=== PATIENT | female | born 1950 | race Caucasian/White ===

== ENCOUNTER 2019-02-14 18:14 | Inpatient (IN) | payer MEDICARE ==
[~2019-02-14 18:14] MED LIST: ISOVUE-370 76%-LOCM 1 ML ONE
[2019-02-14] MEDS ORDERED: Fentanyl 100 MCG/2 ML VIAL ONE (18:27)
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
[2019-02-14] MEDS ORDERED: Adacel (T-DAP) 0.5 ML SYRINGE ONE (18:43)
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
[2019-02-14 18:45] LABS: #Eosinphils 0.2 thou/uL (0.0-0.7); #Lymphocytes 1.9 thou/uL (1.20-3.40); #Neutrophils 13.5 thou/uL (1.40-6.50); %Basophils 0.2 % (0.0-1.0); %Eosinophils 1.3 % (0.0-10.0); %Lymphocytes 11.5 % (21.0-51.0); %Monocytes 5.7 % (0.0-10.0); %Neutrophils 81.3 % (42.0-75.0); Mean Corpuscular HGB CONC 33.4 g/dL (32.0-36.0); Mean Corpuscular Hemoglobin 28.9 pg (27.0-31.0); Mean Corpuscular Volume 86.4 fL (78.0-98.0); Mean Platelet Volume 6.7 fL (7.4-10.4); Platelet Count 291 thou/uL (130-400); RBC Distribution Width 12.9 % (11.5-14.5); Red Blood Cell (RBC) Count 3.46 mill/uL (4.20-5.40); White Blood Cell (WBC) Count 16.6 thou/uL (4.8-10.8)
[2019-02-14 18:50] LABS: INR-International Normal Ratio 1.1; PTT 27.6 SEC (22.9-36.1)
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
[2019-02-14 19:14] LABS: ALT (SGPT) 32 U/L (8-55); AST (SGOT) 45 U/L (5-34); Albumin 4.2 g/dL (3.4-4.8); Alkaline Phosphatase 56 U/L (40-150); Anion Gap 17 mmol/L (10-20); BUN (Urea Nitrogen) 24 mg/dL (9.8-20.1); Bilirubin, Total 0.5 mg/dL (0.2-1.2); Calc. Creatinine Clearance 0 mL/min (70-130); Calcium 9.4 mg/dL (7.8-10.44); Carbon Dioxide 19 mmol/L (23-31); Chloride 107 mmol/L (98-107); Estimated GFR-MDRD 40; Globulin 2.2 g/dL (2.4-3.5); Glucose 206 mg/dL (80-115); Potassium 4.1 mmol/L (3.5-5.1); Protein, Total 6.4 g/dL (6.0-8.3); Sodium 139 mmol/L (136-145)
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
[2019-02-14] MEDS ORDERED: Morphine 4 MG/ML VIAL ONE (20:47)
[2019-02-14 21:13] LABS: Lactic Acid 2.5 mmol/L (0.5-2.2)
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
[2019-02-14 22:24] LABS: Bilirubin Negative (Negative); Blood, Urine Negative (Negative); Clarity CLEAR (Clear); Glucose, Urine (Dipstick) 500 mg/dL (Negative); Leukocyte Small (Negative); Nitrite Negative (Negative); Protein, Urine (Dipstick) Negative (Neg-Trace); Urobilinogen 0.2 mg/dL (0.2-1.0)
[2019-02-14 22:26] LABS: Bacteria/HPF None Seen HPF (None Seen); Hyaline Casts/LPF 0-3 HYALINE CAST LPF (0-3 Hyaline); Pathc Cast-AUWi Flag 0.54 (0-2.49); RBC/HPF 0-3 HPF (0-3); Squamous Epithelial 0-3 HPF (0-3)
[2019-02-14 22:27] LABS: Specific Gravity, Urine 1.048 (1.002-1.036)
[2019-02-14] MEDS ORDERED: traMADol HCl 50 MG TAB PO PRN (22:33)
[2019-02-14] MEDS ORDERED: Morphine 4 MG/ML VIAL SLOW IVP PRN (22:33)
[2019-02-14] MEDS ORDERED: Dextrose 5% in Water 1,000 ML IV PRN (22:33)
[2019-02-14] MEDS ORDERED: hydrALAZINE 20 MG/ML VIAL SLOW IVP PRN (22:33)
[2019-02-14] MEDS ORDERED: Dextrose 50% Abboject 50 ML SYRINGE SLOW IVP PRN (22:33)
[2019-02-14] MEDS ORDERED: Ondansetron PF 4 MG/2 ML Vial IVP PRN (22:33)
[2019-02-14] MEDS ORDERED: Promethazine HCl 25 MG/ML VIAL IM PRN (22:33)
[2019-02-14] MEDS ORDERED: Famotidine 20 MG TAB PO SCH (23:00)
[2019-02-14] MEDS ORDERED: Bacitracin Zinc 1 Packet TOP SCH (23:00)
[2019-02-14] MEDS ORDERED: Senokot S 8.6-50 MG TAB PO SCH (23:00)
[2019-02-14] MEDS: Sodium Chloride 0.9% 1,000 ML IV SCH (23:30)
[2019-02-14] MEDS: Acetaminophen 1,000 MG in Premix Bag 1 BAG IVPB SCH (23:39)
[2019-02-14] MEDS: traMADol HCl 50 MG TAB PO SCH (23:40)
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
[2019-02-15 03:53] VITALS: BMI 27.1
[2019-02-15] MEDS: CEFAZOLIN 2 GM in Premix Bag 1 BAG IVPB SCH ×3 (04:55→21:33)
[2019-02-15] MEDS: traMADol HCl 50 MG TAB PO SCH ×4 (05:36→23:38)
[2019-02-15] MEDS: Acetaminophen 1,000 MG in Premix Bag 1 BAG IVPB SCH ×4 (05:36→23:36)
[2019-02-15 06:29] LABS: #Lymphocytes 1.6 thou/uL (1.20-3.40); #Monocytes 0.8 thou/uL (0.11-0.59); #Neutrophils 7.6 thou/uL (1.40-6.50); %Basophils 0.1 % (0.0-1.0); %Eosinophils 0.3 % (0.0-10.0); %Lymphocytes 15.7 % (21.0-51.0); %Monocytes 7.8 % (0.0-10.0); %Neutrophils 76.2 % (42.0-75.0); Hemoglobin 9.1 g/dL (12.0-16.0); Mean Corpuscular HGB CONC 33.7 g/dL (32.0-36.0); Mean Platelet Volume 6.9 fL (7.4-10.4); Platelet Count 285 thou/uL (130-400); RBC Distribution Width 12.8 % (11.5-14.5); Red Blood Cell (RBC) Count 3.14 mill/uL (4.20-5.40)
[2019-02-15 06:50] LABS: Anion Gap 13 mmol/L (10-20); BUN (Urea Nitrogen) 19 mg/dL (9.8-20.1); Calc. Creatinine Clearance 55 mL/min (70-130); Calcium 9.1 mg/dL (7.8-10.44); Carbon Dioxide 22 mmol/L (23-31); Chloride 103 mmol/L (98-107); Estimated GFR-MDRD 49; Glucose 169 mg/dL (80-115); Magnesium 1.4 mg/dL (1.6-2.6); Phosphorus 4.1 mg/dL (2.3-4.7); Potassium 4.1 mmol/L (3.5-5.1); Sodium 134 mmol/L (136-145)
[2019-02-15] MEDS: Senokot S 8.6-50 MG TAB PO SCH ×2 (08:14→21:32)
[2019-02-15] MEDS: Bacitracin Zinc 1 Packet TOP SCH ×3 (08:14→21:32)
[2019-02-15] MEDS: Famotidine 20 MG TAB PO SCH ×2 (08:14→21:32)
[2019-02-15] MEDS: Polyethylene Glycol 3350 17 GM Packet PO SCH (08:14)
[2019-02-15] MEDS ORDERED: Magnesium Sulfate 4 GM in Sodium Chloride 0.9% 250 ML 250 ML IVPB SCH (08:30)
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
[2019-02-15] MEDS ORDERED: Fentanyl 100 MCG/2 ML VIAL ONE (13:15)
[2019-02-15] MEDS ORDERED: Neomycin-Polymyxin 1 ML AMP ONE (13:39)
--- NOTE | 2019-02-15 16:31 | RAD ---
6 intraoperative radiograph right femur. Intraoperative radiographs obtained. HISTORY: Right femoral fracture. Images demonstrate open reduction internal fixation of the comminuted distal right femoral fracture. IMPRESSION: Open reduction internal fixation right femoral fracture.
[2019-02-15] MEDS ORDERED: PHENYLEPHRINE-NS 100 MCG/ML 10 ML SYRINGE ONE (16:41)
[2019-02-15] MEDS ORDERED: PROPOFOL 200 MG/20 ML VIAL ONE (16:41)
[2019-02-15] MEDS ORDERED: Rocuronium Bromide 10 MG/ML (10ML VIAL) ONE (16:41)
[2019-02-15] MEDS ORDERED: Glycopyrrolate 0.2 MG/ML 5 ML SYRINGE ONE (16:41)
[2019-02-15] MEDS ORDERED: Lidocaine 1% PF 5 ML VIAL ONE (16:41)
[2019-02-15] MEDS ORDERED: Ketorolac Tromethamine 30 MG/ML VIAL ONE (16:41)
[2019-02-15] MEDS ORDERED: ePHEDrine 50 MG/ML VIAL ONE (16:41)
[2019-02-15] MEDS: Sodium Chloride 0.9% 1,000 ML IV SCH ×2 (17:01)
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
[2019-02-15] MEDS: Verapamil 120 MG TAB PO SCH (21:30)
[2019-02-15] MEDS: Atorvastatin Calcium 20 MG TAB PO SCH (21:32)
[2019-02-15] MEDS: HumaLOG 300 UNITS/3 ML VIAL SC PRN (21:33)
[2019-02-16] MEDS: CEFAZOLIN 2 GM in Premix Bag 1 BAG IVPB SCH ×3 (03:28→20:42)
[2019-02-16 05:34] LABS: #Lymphocytes 0.9 thou/uL (1.20-3.40); #Monocytes 0.6 thou/uL (0.11-0.59); #Neutrophils 6.7 thou/uL (1.40-6.50); %Basophils 0.4 % (0.0-1.0); %Lymphocytes 11.3 % (21.0-51.0); %Monocytes 7.4 % (0.0-10.0); %Neutrophils 80.9 % (42.0-75.0); Hemoglobin 7.6 g/dL (12.0-16.0); Mean Corpuscular HGB CONC 33.1 g/dL (32.0-36.0); Mean Corpuscular Hemoglobin 28.9 pg (27.0-31.0); Mean Corpuscular Volume 87.1 fL (78.0-98.0); Mean Platelet Volume 6.7 fL (7.4-10.4); Platelet Count 239 thou/uL (130-400); RBC Distribution Width 12.9 % (11.5-14.5); Red Blood Cell (RBC) Count 2.62 mill/uL (4.20-5.40); White Blood Cell (WBC) Count 8.2 thou/uL (4.8-10.8)
[2019-02-16 05:57] LABS: Anion Gap 12 mmol/L (10-20); BUN (Urea Nitrogen) 19 mg/dL (9.8-20.1); Calc. Creatinine Clearance 56 mL/min (70-130); Calcium 8.5 mg/dL (7.8-10.44); Carbon Dioxide 23 mmol/L (23-31); Chloride 103 mmol/L (98-107); Estimated GFR-MDRD 49; Glucose 198 mg/dL (80-115); Magnesium 1.9 mg/dL (1.6-2.6); Phosphorus 4.2 mg/dL (2.3-4.7); Potassium 4.9 mmol/L (3.5-5.1); Sodium 133 mmol/L (136-145)
[2019-02-16] MEDS: traMADol HCl 50 MG TAB PO SCH ×4 (06:20→23:37)
[2019-02-16] MEDS: HumaLOG 300 UNITS/3 ML VIAL SC PRN ×3 (06:23→20:55)
[2019-02-16] MEDS: Hydrochlorothiazide 25 MG TAB PO SCH (08:51)
[2019-02-16] MEDS: Polyethylene Glycol 3350 17 GM Packet PO SCH (08:52)
[2019-02-16] MEDS: Bacitracin Zinc 1 Packet TOP SCH ×3 (08:52→20:45)
[2019-02-16] MEDS: Famotidine 20 MG TAB PO SCH ×2 (08:52→20:45)
[2019-02-16] MEDS: Senokot S 8.6-50 MG TAB PO SCH ×2 (08:52→20:45)
[2019-02-16] MEDS: Verapamil 120 MG TAB PO SCH ×2 (08:52→20:42)
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
[2019-02-16] MEDS: Acetaminophen 500 MG TAB PO SCH ×3 (11:59→23:37)
[2019-02-16] MEDS: Ascorbic Acid 500 mg Chewable Tablet PO SCH ×2 (11:59→20:45)
[2019-02-16] MEDS: Cyclobenzaprine 10 MG TAB PO PRN ×3 (12:01→23:40)
[2019-02-16] MEDS: Ferrous Sulfate 325 MG TAB PO SCH (17:23)
[2019-02-16] MEDS: Atorvastatin Calcium 20 MG TAB PO SCH (20:45)
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
[2019-02-17] MEDS: CEFAZOLIN 2 GM in Premix Bag 1 BAG IVPB SCH (03:51)
[2019-02-17] MEDS: Acetaminophen 500 MG TAB PO SCH ×4 (06:14→23:38)
[2019-02-17] MEDS: traMADol HCl 50 MG TAB PO SCH ×4 (06:14→23:39)
[2019-02-17] MEDS: HumaLOG 300 UNITS/3 ML VIAL SC PRN ×4 (06:15→21:22)
[2019-02-17 07:41] LABS: #Eosinphils 0.1 thou/uL (0.0-0.7); #Lymphocytes 2.1 thou/uL (1.20-3.40); #Monocytes 0.5 thou/uL (0.11-0.59); #Neutrophils 5.4 thou/uL (1.40-6.50); %Basophils 0.4 % (0.0-1.0); %Eosinophils 1.3 % (0.0-10.0); %Lymphocytes 26.2 % (21.0-51.0); %Monocytes 5.9 % (0.0-10.0); %Neutrophils 66.2 % (42.0-75.0); Hemoglobin 6.5 g/dL (12.0-16.0); Mean Corpuscular HGB CONC 33.8 g/dL (32.0-36.0); Mean Corpuscular Hemoglobin 29.3 pg (27.0-31.0); Mean Corpuscular Volume 86.8 fL (78.0-98.0); Mean Platelet Volume 6.3 fL (7.4-10.4); Platelet Count 223 thou/uL (130-400); Red Blood Cell (RBC) Count 2.23 mill/uL (4.20-5.40); White Blood Cell (WBC) Count 8.1 thou/uL (4.8-10.8)
[2019-02-17] MEDS: Hydrochlorothiazide 25 MG TAB PO SCH (09:08)
[2019-02-17] MEDS: Polyethylene Glycol 3350 17 GM Packet PO SCH (09:23)
[2019-02-17] MEDS: Ascorbic Acid 500 mg Chewable Tablet PO SCH ×2 (09:23→20:37)
[2019-02-17] MEDS: Senokot S 8.6-50 MG TAB PO SCH ×2 (09:23→20:39)
[2019-02-17] MEDS: Cyclobenzaprine 10 MG TAB PO PRN ×2 (09:23→17:21)
[2019-02-17] MEDS: Bacitracin Zinc 1 Packet TOP SCH ×3 (09:23→20:38)
[2019-02-17] MEDS: Ferrous Sulfate 325 MG TAB PO SCH ×2 (09:23→17:18)
[2019-02-17] MEDS: Verapamil 120 MG TAB PO SCH ×2 (09:24→20:39)
[2019-02-17] MEDS: Famotidine 20 MG TAB PO SCH ×2 (09:24→20:39)
[2019-02-17 12:46] LABS: Hemoglobin 8.6 g/dL (12.0-16.0)
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
[2019-02-17] MEDS: Atorvastatin Calcium 20 MG TAB PO SCH (20:37)
[2019-02-18] MEDS: Acetaminophen 500 MG TAB PO SCH ×4 (05:27→23:12)
[2019-02-18] MEDS: traMADol HCl 50 MG TAB PO SCH ×4 (05:27→23:12)
[2019-02-18 05:43] LABS: #Basophils 0.1 thou/uL (0.0-0.2); #Eosinphils 0.3 thou/uL (0.0-0.7); #Lymphocytes 2.1 thou/uL (1.20-3.40); #Monocytes 0.6 thou/uL (0.11-0.59); #Neutrophils 5.3 thou/uL (1.40-6.50); %Basophils 0.6 % (0.0-1.0); %Eosinophils 3.1 % (0.0-10.0); %Lymphocytes 24.8 % (21.0-51.0); %Monocytes 7.6 % (0.0-10.0); %Neutrophils 63.9 % (42.0-75.0); Hemoglobin 7.9 g/dL (12.0-16.0); Mean Corpuscular Hemoglobin 29.1 pg (27.0-31.0); Mean Corpuscular Volume 88.1 fL (78.0-98.0); Mean Platelet Volume 6.6 fL (7.4-10.4); Platelet Count 275 thou/uL (130-400); RBC Distribution Width 13.3 % (11.5-14.5); Red Blood Cell (RBC) Count 2.71 mill/uL (4.20-5.40); White Blood Cell (WBC) Count 8.3 thou/uL (4.8-10.8)
[2019-02-18 06:05] LABS: Anion Gap 12 mmol/L (10-20); BUN (Urea Nitrogen) 22 mg/dL (9.8-20.1); Calc. Creatinine Clearance 68 mL/min (70-130); Carbon Dioxide 25 mmol/L (23-31); Chloride 103 mmol/L (98-107); Estimated GFR-MDRD 62; Glucose 142 mg/dL (80-115); Potassium 4.5 mmol/L (3.5-5.1); Sodium 135 mmol/L (136-145)
[2019-02-18] MEDS: HumaLOG 300 UNITS/3 ML VIAL SC PRN ×2 (06:10→21:34)
[2019-02-18] MEDS: Polyethylene Glycol 3350 17 GM Packet PO SCH (08:41)
[2019-02-18] MEDS: Verapamil 120 MG TAB PO SCH ×2 (08:41→21:32)
[2019-02-18] MEDS: Ascorbic Acid 500 mg Chewable Tablet PO SCH ×2 (08:41→21:32)
[2019-02-18] MEDS: Senokot S 8.6-50 MG TAB PO SCH ×2 (08:41→21:32)
[2019-02-18] MEDS: Famotidine 20 MG TAB PO SCH ×2 (08:41→21:32)
[2019-02-18] MEDS: Bacitracin Zinc 1 Packet TOP SCH ×3 (08:42→21:32)
[2019-02-18] MEDS: Ferrous Sulfate 325 MG TAB PO SCH ×2 (08:42→18:37)
[2019-02-18] MEDS: Cyclobenzaprine 10 MG TAB PO PRN (08:43)
[2019-02-18] MEDS ORDERED: Bisacodyl 10 MG SUPP PR PRN (08:44)
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
[2019-02-18] MEDS: Heparin 5,000 UNITS/ML VIAL SC SCH ×2 (10:45→21:33)
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
[2019-02-18] MEDS: Atorvastatin Calcium 20 MG TAB PO SCH (21:32)
[2019-02-19 04:48] LABS: #Basophils 0.1 thou/uL (0.0-0.2); #Eosinphils 0.3 thou/uL (0.0-0.7); #Lymphocytes 2.1 thou/uL (1.20-3.40); #Monocytes 0.6 thou/uL (0.11-0.59); #Neutrophils 4.4 thou/uL (1.40-6.50); %Eosinophils 3.6 % (0.0-10.0); %Lymphocytes 27.8 % (21.0-51.0); %Monocytes 7.9 % (0.0-10.0); %Neutrophils 59.7 % (42.0-75.0); Hemoglobin 8.1 g/dL (12.0-16.0); Mean Corpuscular HGB CONC 32.9 g/dL (32.0-36.0); Mean Corpuscular Hemoglobin 29.1 pg (27.0-31.0); Mean Corpuscular Volume 88.2 fL (78.0-98.0); Mean Platelet Volume 6.1 fL (7.4-10.4); Platelet Count 308 thou/uL (130-400); RBC Distribution Width 13.5 % (11.5-14.5); Red Blood Cell (RBC) Count 2.79 mill/uL (4.20-5.40); White Blood Cell (WBC) Count 7.4 thou/uL (4.8-10.8)
[2019-02-19 05:09] LABS: Anion Gap 11 mmol/L (10-20); BUN (Urea Nitrogen) 21 mg/dL (9.8-20.1); Calc. Creatinine Clearance 75 mL/min (70-130); Calcium 9.4 mg/dL (7.8-10.44); Carbon Dioxide 24 mmol/L (23-31); Chloride 104 mmol/L (98-107); Estimated GFR-MDRD 69; Glucose 141 mg/dL (80-115); Magnesium 1.4 mg/dL (1.6-2.6); Potassium 4.2 mmol/L (3.5-5.1); Sodium 135 mmol/L (136-145)
[2019-02-19] MEDS: traMADol HCl 50 MG TAB PO SCH ×4 (05:21→23:00)
[2019-02-19] MEDS: Acetaminophen 500 MG TAB PO SCH ×4 (05:21→23:00)
[2019-02-19] MEDS: HumaLOG 300 UNITS/3 ML VIAL SC PRN ×2 (06:33→17:47)
[2019-02-19] MEDS ORDERED: Magnesium Sulfate 4 GM in Sodium Chloride 0.9% 250 ML 250 ML IVPB SCH (07:15)
[2019-02-19] MEDS ORDERED: Magnesium Citrate 300 ML BOT PO SCH (08:15)
[2019-02-19] MEDS: Senokot S 8.6-50 MG TAB PO SCH ×2 (09:32→20:25)
[2019-02-19] MEDS: Ferrous Sulfate 325 MG TAB PO SCH ×2 (09:33→17:47)
[2019-02-19] MEDS: Bacitracin Zinc 1 Packet TOP SCH ×3 (09:33→20:25)
[2019-02-19] MEDS: Verapamil 120 MG TAB PO SCH ×2 (09:33→20:24)
[2019-02-19] MEDS: Ascorbic Acid 500 mg Chewable Tablet PO SCH ×2 (09:34→20:24)
[2019-02-19] MEDS: Famotidine 20 MG TAB PO SCH ×2 (09:34→20:25)
[2019-02-19] MEDS: Heparin 5,000 UNITS/ML VIAL SC SCH ×2 (09:34→20:26)
[2019-02-19] MEDS: Polyethylene Glycol 3350 17 GM Packet PO SCH (09:35)
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
[2019-02-19] MEDS: Atorvastatin Calcium 20 MG TAB PO SCH (20:24)
[2019-02-19] MEDS: Cyclobenzaprine 10 MG TAB PO PRN (22:19)
[2019-02-20] MEDS: traMADol HCl 50 MG TAB PO SCH ×4 (06:10→23:05)
[2019-02-20] MEDS: Acetaminophen 500 MG TAB PO SCH ×4 (06:10→23:05)
[2019-02-20 06:21] LABS: Anion Gap 11 mmol/L (10-20); BUN (Urea Nitrogen) 20 mg/dL (9.8-20.1); Calc. Creatinine Clearance 75 mL/min (70-130); Calcium 9.6 mg/dL (7.8-10.44); Carbon Dioxide 26 mmol/L (23-31); Chloride 103 mmol/L (98-107); Estimated GFR-MDRD 69; Glucose 131 mg/dL (80-115); Magnesium 2.2 mg/dL (1.6-2.6); Phosphorus 3.1 mg/dL (2.3-4.7); Potassium 4.4 mmol/L (3.5-5.1); Sodium 136 mmol/L (136-145)
[2019-02-20] MEDS: Ascorbic Acid 500 mg Chewable Tablet PO SCH ×2 (08:33→20:04)
[2019-02-20] MEDS: Heparin 5,000 UNITS/ML VIAL SC SCH ×2 (08:34→20:04)
[2019-02-20] MEDS: Famotidine 20 MG TAB PO SCH (08:40)
[2019-02-20] MEDS: Ferrous Sulfate 325 MG TAB PO SCH ×2 (08:40→18:48)
[2019-02-20] MEDS: Verapamil 120 MG TAB PO SCH ×2 (08:40→20:04)
[2019-02-20] MEDS: Bacitracin Zinc 1 Packet TOP SCH ×3 (08:40→20:04)
[2019-02-20] MEDS: Polyethylene Glycol 3350 17 GM Packet PO SCH (08:41)
[2019-02-20] MEDS: Senokot S 8.6-50 MG TAB PO SCH ×2 (08:44→20:03)
[2019-02-20] MEDS: HumaLOG 300 UNITS/3 ML VIAL SC PRN ×2 (12:20→18:49)
[2019-02-20] MEDS: Atorvastatin Calcium 20 MG TAB PO SCH (20:04)
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
[2019-02-21] MEDS: traMADol HCl 50 MG TAB PO SCH ×4 (06:11→23:29)
[2019-02-21] MEDS: Acetaminophen 500 MG TAB PO SCH ×4 (06:12→23:28)
[2019-02-21] MEDS: Verapamil 120 MG TAB PO SCH ×2 (09:13→20:31)
[2019-02-21] MEDS: Ascorbic Acid 500 mg Chewable Tablet PO SCH ×2 (09:14→20:31)
[2019-02-21] MEDS: Polyethylene Glycol 3350 17 GM Packet PO SCH (09:14)
[2019-02-21] MEDS: Senokot S 8.6-50 MG TAB PO SCH ×2 (09:14→20:31)
[2019-02-21] MEDS: Bacitracin Zinc 1 Packet TOP SCH ×3 (09:15→20:29)
[2019-02-21] MEDS: Heparin 5,000 UNITS/ML VIAL SC SCH ×2 (09:15→20:31)
[2019-02-21] MEDS: Ferrous Sulfate 325 MG TAB PO SCH ×2 (09:21→18:01)
[2019-02-21] MEDS: HumaLOG 300 UNITS/3 ML VIAL SC PRN ×2 (13:13→21:21)
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
[2019-02-21] MEDS: Atorvastatin Calcium 20 MG TAB PO SCH (20:31)
[2019-02-22] MEDS: Cyclobenzaprine 10 MG TAB PO PRN (03:16)
[2019-02-22 05:16] LABS: Hemoglobin 8.3 g/dL (12.0-16.0); Mean Corpuscular HGB CONC 33.3 g/dL (32.0-36.0); Mean Corpuscular Hemoglobin 29.4 pg (27.0-31.0); Mean Corpuscular Volume 88.5 fL (78.0-98.0); Mean Platelet Volume 6.1 fL (7.4-10.4); Platelet Count 406 thou/uL (130-400); RBC Distribution Width 14.3 % (11.5-14.5); Red Blood Cell (RBC) Count 2.83 mill/uL (4.20-5.40); White Blood Cell (WBC) Count 8.5 thou/uL (4.8-10.8)
[2019-02-22] MEDS: traMADol HCl 50 MG TAB PO SCH ×4 (05:18→23:00)
[2019-02-22] MEDS: Acetaminophen 500 MG TAB PO SCH ×4 (05:18→23:00)
[2019-02-22] MEDS: Ascorbic Acid 500 mg Chewable Tablet PO SCH ×2 (08:45→20:04)
[2019-02-22] MEDS: Ferrous Sulfate 325 MG TAB PO SCH ×2 (08:45→17:32)
[2019-02-22] MEDS: Polyethylene Glycol 3350 17 GM Packet PO SCH (08:46)
[2019-02-22] MEDS: Verapamil 120 MG TAB PO SCH ×2 (08:46→20:04)
[2019-02-22] MEDS: Senokot S 8.6-50 MG TAB PO SCH ×2 (08:46→20:04)
[2019-02-22] MEDS: Bacitracin Zinc 1 Packet TOP SCH ×3 (08:47→20:05)
[2019-02-22] MEDS: Heparin 5,000 UNITS/ML VIAL SC SCH ×2 (08:47→20:05)
[2019-02-22] MEDS: HumaLOG 300 UNITS/3 ML VIAL SC PRN (11:34)
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
[2019-02-22] MEDS: Atorvastatin Calcium 20 MG TAB PO SCH (20:05)
[2019-02-23] MEDS: Acetaminophen 500 MG TAB PO SCH ×4 (05:20→23:01)
[2019-02-23] MEDS: traMADol HCl 50 MG TAB PO SCH ×4 (05:20→23:01)
[2019-02-23] MEDS: Senokot S 8.6-50 MG TAB PO SCH ×2 (08:52→20:21)
[2019-02-23] MEDS: Verapamil 120 MG TAB PO SCH ×2 (08:53→20:22)
[2019-02-23] MEDS: Ferrous Sulfate 325 MG TAB PO SCH ×2 (08:53→19:35)
[2019-02-23] MEDS: Ascorbic Acid 500 mg Chewable Tablet PO SCH ×2 (08:53→20:22)
[2019-02-23] MEDS: Bacitracin Zinc 1 Packet TOP SCH ×3 (08:54→20:22)
[2019-02-23] MEDS: Heparin 5,000 UNITS/ML VIAL SC SCH ×2 (08:54→20:22)
[2019-02-23] MEDS: Polyethylene Glycol 3350 17 GM Packet PO SCH (08:57)
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
[2019-02-23] MEDS: HumaLOG 300 UNITS/3 ML VIAL SC PRN ×2 (12:50→21:59)
[2019-02-23] MEDS: Atorvastatin Calcium 20 MG TAB PO SCH (20:22)
[2019-02-24] MEDS: Cyclobenzaprine 10 MG TAB PO PRN ×2 (01:21→23:36)
[2019-02-24] MEDS: Acetaminophen 500 MG TAB PO SCH ×5 (05:36→23:36)
[2019-02-24] MEDS: traMADol HCl 50 MG TAB PO SCH ×4 (05:36→23:35)
[2019-02-24] MEDS: HumaLOG 300 UNITS/3 ML VIAL SC PRN ×2 (06:07→13:06)
[2019-02-24] MEDS ORDERED: Calcium Acetate 667 MG CAP ONE (07:58)
[2019-02-24] MEDS: Polyethylene Glycol 3350 17 GM Packet PO SCH (08:53)
[2019-02-24] MEDS: Bacitracin Zinc 1 Packet TOP SCH ×3 (08:53→21:22)
[2019-02-24] MEDS: Ferrous Sulfate 325 MG TAB PO SCH ×2 (08:53→17:47)
[2019-02-24] MEDS: Verapamil 120 MG TAB PO SCH ×2 (08:55→21:21)
[2019-02-24] MEDS: Senokot S 8.6-50 MG TAB PO SCH ×2 (08:55→21:21)
[2019-02-24] MEDS: Ascorbic Acid 500 mg Chewable Tablet PO SCH ×2 (08:55→21:21)
[2019-02-24] MEDS: Heparin 5,000 UNITS/ML VIAL SC SCH ×2 (08:56→21:22)
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
[2019-02-24] MEDS: Atorvastatin Calcium 20 MG TAB PO SCH (21:21)
[2019-02-25] MEDS: Acetaminophen 500 MG TAB PO SCH (05:00)
[2019-02-25 07:54] VITALS: TEMP 97.8
[2019-02-25] MEDS: Bacitracin Zinc 1 Packet TOP SCH (09:22)
[2019-02-25] MEDS: Senokot S 8.6-50 MG TAB PO SCH (09:22)
[2019-02-25] MEDS: Ascorbic Acid 500 mg Chewable Tablet PO SCH (09:22)
[2019-02-25] MEDS: Ferrous Sulfate 325 MG TAB PO SCH (09:22)
[2019-02-25 09:23] VITALS: BP 130/71
[2019-02-25] MEDS: Polyethylene Glycol 3350 17 GM Packet PO SCH (09:23)
[2019-02-25] MEDS: Heparin 5,000 UNITS/ML VIAL SC SCH (09:23)
[2019-02-25] MEDS: Verapamil 120 MG TAB PO SCH (09:23)
== END 2019-02-25 11:00 | disposition home or self-care (01) | DRG 481 ==
LOC: ERS 18:14 → SJJU 22:24
PROVIDERS: ADMIT Specialist; ATTEND Specialist
PROC: 0QSB04Z Reposition Right Lower Femur with Internal Fixation Device, Open Approach (ICD-10-PCS; principal; 2019-02-15)
DX: S72.491B Other fracture of lower end of right femur, initial encounter for open fracture type I or II (principal); S22.31XA Fracture of one rib, right side, initial encounter for closed fracture; N17.9 Acute kidney failure, unspecified; I10 Essential (primary) hypertension; E78.5 Hyperlipidemia, unspecified; E11.9 Type 2 diabetes mellitus without complications; S50.811A Abrasion of right forearm, initial encounter; S40.811A Abrasion of right upper arm, initial encounter; D50.0 Iron deficiency anemia secondary to blood loss (chronic); V47.5XXA Car driver injured in collision with fixed or stationary object in traffic accident, initial encounter; Z90.710 Acquired absence of both cervix and uterus; Z79.84 Long term (current) use of oral hypoglycemic drugs; Z79.899 Other long term (current) drug therapy
CPT/HCPCS: 36415; 36416; 36430; 70450; 71045; 71260; 72125; 72170; 74177; 76000; 80048; 80053; 81003; 81015; 83605; 83735; 84100; 84484; 85025; 85027; 85610; 85730; 86850; 86900; 86901; 90471; 90715; 93005; 96365; 96375; C1713; C1769; G0390; J0131; J0690; J1644; J1885; J2001; J2270; J2704; J3010; J3475; J3490; J7050; P9016; Q9966